=== PATIENT | female | born 1935 | race Caucasian/White ===

== ENCOUNTER 2017-01-29 18:19 | Emergency (ER) | payer MEDICARE ==
[~2017-01-29 18:19] MED LIST: ACETAMINOPHEN325 MG PO; ALBUTEROL S3 ML/VIAL NEB; ASPIR 8181 MG GT; CYANOCOBAL1000 MCG/M INJ; FERROUS SU300 MG/5 M GT; HYDROCODON-ACE1 EAC4 GT; JEVITY 1 CAL1500 ML GT; LIPITOR10 MG GT; METOPROLOL TART25 MG GT; POLYETHYLENE GL17 GM GT; PRINIVIL20 MG GT; ZANTAC150 MG PO
== END 2017-01-29 20:28 | disposition home or self-care (01) ==
LOC: ER 18:19
DX: R53.1 Weakness (principal); R06.02 Shortness of breath; J44.9 Chronic obstructive pulmonary disease, unspecified; I10 Essential (primary) hypertension; K21.9 Gastro-esophageal reflux disease without esophagitis; F41.9 Anxiety disorder, unspecified; Z88.5 Allergy status to narcotic agent; Z88.8 Allergy status to other drugs, medicaments and biological substances; Z91.040 Latex allergy status; Z88.1 Allergy status to other antibiotic agents; Z88.2 Allergy status to sulfonamides; Z88.0 Allergy status to penicillin; Z79.899 Other long term (current) drug therapy
CPT/HCPCS: 36415; 96360